=== PATIENT | male | born 1990 | race Caucasian/White ===

== ENCOUNTER 2019-05-02 12:00 | Emergency (ER) | payer SELFPAY ==
[~2019-05-02] VITALS: Ht 188 cm; Wt 142.4 kg
[2019-05-02 12:16] VITALS: BP 158/96
--- NOTE | 2019-05-02 12:18 | NUR ---
PT TO LOBBY WITH STEADY GAIT
--- NOTE | 2019-05-02 12:46 | NUR ---
Patient ambulated to bed 9. RN evaluating patient at bedside.
--- NOTE | 2019-05-02 12:57 | NUR ---
PT C/O R KNEE PAIN X THURSDAY, PAIN STARTED RADIAITNG DOWN LEG YESTERDAY. PT DENIES N/V/D; SKIN IS INTACT, PINK/WARM/DRY; AAOX4, PERRL, STEADY GAIT-SLIGHT LIMPING NOTED TO RT SIDE. PT WAS WALIKG WHEN HER HEARD AND FELT A LOUD POP-PAIN WAS 10/10. LUNGS CLEAR BL, BREATHING UNLABORED; HR EVEN AND REGULAR, BL PERIPHERAL PULSES PRESENT; BS ACTIVE X4, NO TENDERNESS TO PALPATION, NO HEPATOSPLENOMEGALLY PALPATED, RESONANT TO PERCUSSION; PT DENIES ANY FEVER, CP, SOB, OR COUGH AT THIS TIME; PT STATES 8/10 PAIN AT THIS TIME; VSS; PATIENT POSITIONED FOR COMFORT; HOB ELEVATED; BEDRAILS UP X2; BED DOWN.
--- NOTE | 2019-05-02 12:58 | NUR ---
Patient taken to XRAY via wheelchair by tech.
[2019-05-02] MEDS ORDERED: KETOROLAC 15 MG/ML VIAL IM ONE (13:00)
[2019-05-02 14:17] VITALS: BP 110/72
--- NOTE | 2019-05-02 14:17 | NUR ---
Patient discharged with v/s stable. Written and verbal after care instructions given and explained. Patient alert, oriented and verbalized understanding of instructions. Ambulatory with steady gait. All questions addressed prior to discharge. ID band removed. Patient advised to follow up with PMD. Rx of FLEXIRIL given. Patient educated on indication of medication including possible reaction and side effects. Opportunity to ask questions provided and answered.
== END 2019-05-02 14:17 | disposition home or self-care (01) ==
LOC: MED 12:00
DX: M25.561 Pain in right knee (principal); M54.5 Low back pain
CPT/HCPCS: 73562; 96372; 99283; J1885; Q0092

== ENCOUNTER 2022-10-17 10:57 | Emergency (ER) | payer MEDICAID, OTHER ==
[~2022-10-17] VITALS: Ht 190.5 cm; Wt 131.5 kg
[2022-10-17 11:31] VITALS: BP 137/83; PULSE 63; RESP 20; TEMP 98; O2SAT 98
--- NOTE | 2022-10-17 11:58 | NUR ---
PT AMBULATED TO BED 4 W/STEADY GAIT.
--- NOTE | 2022-10-17 12:13 | NUR ---
32YO M PRESENTS W/LT UPPER BACK ABSCESS X 5 DAYS. PT STATES HE FELT NON-STOP DRAINAGE TODAY DURING WORK. PT DENIES INJURY, N,V,D, FEVER, CHILLS, DALE. ABSCESS ACTIVILY DRAINING, GUAZE CHANGED, REDNESS ON SURROUNDING AREA. SAFETY MAINTAINED. CALL LIGHT IN REACH.
[2022-10-17] MEDS ORDERED: IBUP-2213 PO (12:25)
[2022-10-17] MEDS ORDERED: CEPH-588 PO (12:25)
--- NOTE | 2022-10-17 13:10 | NUR ---
Patient discharged with v/s stable. Written and verbal after care instructions given and explained. Patient alert, oriented and verbalized understanding of instructions. Ambulatory with steady gait. All questions addressed prior to discharge. ID band removed. Patient advised to follow up with PMD. Rx of IBUPROFEN, KEFLEX given. Opportunity to ask questions provided and answered.
[2022-10-17 13:11] VITALS: BP 132/78; PULSE 62; RESP 13; TEMP 97.3; O2SAT 99
== END 2022-10-17 13:10 | disposition home or self-care (01) ==
LOC: MED 10:57
DX: L02.414 Cutaneous abscess of left upper limb (principal); Z79.899 Other long term (current) drug therapy
CPT/HCPCS: 99283